=== PATIENT | female | born 1970 | race Caucasian/White ===

== ENCOUNTER → 2017-11-26 | Emergency (ER) | payer OTHER ==
[~2017-11-26] VITALS: Ht 154.9 cm; Wt 70.3 kg
[~2017-11-26] MED LIST: CABERGOLINE0.5 MG; ZANTAC150 M3
== END | disposition home or self-care (01) ==
LOC: ER 18:01
DX: R51 Headache (principal)

== ENCOUNTER 2017-12-07 21:30 | Emergency (ER) | payer OTHER ==
[~2017-12-07] VITALS: Ht 154.9 cm; Wt 70.3 kg
[2017-12-07] MEDS ORDERED: PROTONIX40 M1 (22:22)
== END 2017-12-08 03:55 | disposition home or self-care (01) ==
LOC: ER 21:30
DX: K21.9 Gastro-esophageal reflux disease without esophagitis (principal)

== ENCOUNTER 2017-12-31 22:44 | Emergency (ER) | payer OTHER ==
[~2017-12-31] VITALS: Ht 154.9 cm; Wt 68.0 kg
[~2017-12-31 22:44] MED LIST changes: +PROTONIX40 M1
[2018-01-01] MEDS ORDERED: PROTONIX40 MG PO (06:22)
[2018-01-01] MEDS ORDERED: DICY20TA PO (06:22)
== END 2018-01-01 07:47 | disposition home or self-care (01) ==
LOC: ER 22:44
DX: K29.70 Gastritis, unspecified, without bleeding (principal)

== ENCOUNTER 2018-01-02 10:56 | Inpatient (IN) | payer OTHER ==
[~2018-01-02] VITALS: Ht 154.9 cm; Wt 68.0 kg
[~2018-01-02 10:56] MED LIST changes: +DICY20TA PO; +PROTONIX40 MG PO
[2018-01-07] MEDS ORDERED: PROTONIX40 MG PO (13:24)
[2018-01-07] MEDS ORDERED: ZANTAC150 MG PO (13:24)
== END 2018-01-07 16:01 | disposition home or self-care (01) | DRG 392 ==
LOC: ER 10:56 → SEC-K 17:54 → MEDJ 17:54
PROC: BW40ZZZ Ultrasonography of Abdomen (ICD-10-PCS; principal; 2018-01-02)
PROC: B03 Imaging, Central Nervous System, Magnetic Resonance Imaging (MRI) (ICD-10-PCS; 2018-01-02)
PROC: BD15ZZZ Fluoroscopy of Upper GI (ICD-10-PCS; 2018-01-02)
PROC: 3E0436Z Introduction of Nutritional Substance into Central Vein, Percutaneous Approach (ICD-10-PCS; 2018-01-03)
PROC: 02HV33Z Insertion of Infusion Device into Superior Vena Cava, Percutaneous Approach (ICD-10-PCS; 2018-01-03)
PROC: CD171ZZ Planar Nuclear Medicine Imaging of Gastrointestinal Tract using Technetium 99m (Tc-99m) (ICD-10-PCS; 2018-01-06)
DX: K29.00 Acute gastritis without bleeding (principal); K90.49 Malabsorption due to intolerance, not elsewhere classified; K31.84 Gastroparesis; K21.9 Gastro-esophageal reflux disease without esophagitis; D35.2 Benign neoplasm of pituitary gland
CPT/HCPCS: 70545

== ENCOUNTER 2018-03-21 13:24 | Outpatient (CLI) | payer OTHER ==
[~2018-03-21 13:24] MED LIST changes: +ZANTAC150 MG PO
== END 2018-03-21 14:00 | disposition home or self-care (01) ==
LOC: NUCLEAR 13:24
DX: M32.8 Other forms of systemic lupus erythematosus (principal); M35.8 Other specified systemic involvement of connective tissue; D59.1 Other autoimmune hemolytic anemias; D89.1 Cryoglobulinemia
CPT/HCPCS: 78804; A9556

== ENCOUNTER 2018-04-25 10:36 | Outpatient (CLI) | payer OTHER | END 2018-04-25 10:46 | disposition home or self-care (01) | LOC: NUCLEAR 10:36 | DX: I87.2 Venous insufficiency (chronic) (peripheral) (principal); R60.0 Localized edema ==

== ENCOUNTER → 2018-05-19 11:57 | Outpatient (CLI) | payer OTHER | END | disposition home or self-care (01) | LOC: EKG 11:57 | DX: I10 Essential (primary) hypertension (principal) ==